=== PATIENT | female | born 1985 | race Hispanic/Latino ===

== ENCOUNTER 2017-08-12 03:03 | Emergency (ER) | payer MEDICAID, SELFPAY ==
[2017-08-12 03:36] LABS: Bilirubin Negative (Negative); Blood, Urine Large (Negative); Clarity TURBID (Clear); Glucose, Urine (Dipstick) Negative (Negative); Leukocyte Large (Negative); Nitrite Negative (Negative); Protein, Urine (Dipstick) 300 mg/dL (Neg-Trace); Specific Gravity, Urine 1.019 (1.002-1.036); Urobilinogen 0.2 mg/dL (0.2-1.0)
[2017-08-12 03:39] LABS: Bacteria/HPF None Seen HPF (None Seen); RBC/HPF GREATER THAN 50-TNTC HPF (0-3); Squamous Epithelial 0-3 HPF (0-3)
[2017-08-12 03:40] LABS: Hyaline Casts/LPF 0-3 HYALINE CAST LPF (0-3 Hyaline); Other Casts/LPF None Seen LPF (0-3 Hyaline); Pathc Cast-AUWi Flag 28.63 (0-2.49)
[2017-08-12 03:41] LABS: Pregnancy Test - Urine (BHCG) Negative (Negative); Pregu Control Background? CLEAR/WHITE (CLR/WHITE); Pregu Control Bar Appear? YES (CONTROL BAR); Specific Gravity 1.019 (1.002-1.036)
== END 2017-08-12 04:04 | disposition home or self-care (01) ==
LOC: ERS 03:03
DX: N30.01 Acute cystitis with hematuria (principal); F32.9 Major depressive disorder, single episode, unspecified
CPT/HCPCS: 81003; 81015; 81025; 99283

== ENCOUNTER 2017-10-26 19:58 | Emergency (ER) | payer SELFPAY ==
[2017-10-26 20:22] LABS: Bilirubin Negative (Negative); Blood, Urine Negative (Negative); Clarity CLOUDY (Clear); Glucose, Urine (Dipstick) Negative (Negative); Leukocyte Moderate (Negative); Nitrite Negative (Negative); Protein, Urine (Dipstick) Negative (Neg-Trace); Specific Gravity, Urine 1.016 (1.002-1.036); Urobilinogen 0.2 mg/dL (0.2-1.0)
[2017-10-26 20:23] LABS: Bacteria/HPF Rare-Few HPF (None Seen); Hyaline Casts/LPF 4-6 HYALINE CAST LPF (0-3 Hyaline); Pathc Cast-AUWi Flag 1.88 (0-2.49)
[2017-10-26 20:25] LABS: Pregnancy Test - Urine (BHCG) POSITIVE (Negative); Pregu Control Background? CLEAR/WHITE (CLR/WHITE); Pregu Control Bar Appear? YES (CONTROL BAR); Specific Gravity 1.016 (1.002-1.036)
[2017-10-26 23:00] LABS: #Basophils 0.1 thou/uL (0.0-0.2); #Eosinphils 0.1 thou/uL (0.0-0.7); #Monocytes 0.8 thou/uL (0.11-0.59); #Neutrophils 6.5 thou/uL (1.40-6.50); %Basophils 0.9 % (0.0-1.0); %Eosinophils 0.7 % (0.0-10.0); %Lymphocytes 35.1 % (21.0-51.0); %Monocytes 6.7 % (0.0-10.0); %Neutrophils 56.6 % (42.0-75.0); Hemoglobin 12.9 g/dL (12.0-16.0); Mean Corpuscular HGB CONC 34.5 g/dL (32.0-36.0); Mean Corpuscular Hemoglobin 30.1 pg (27.0-31.0); Mean Corpuscular Volume 87.3 fl (81.0-99.0); Mean Platelet Volume 7.4 fL (7.4-10.4); Platelet Count 273 thou/uL (130-400); RBC Distribution Width 12.6 % (11.5-14.5); Red Blood Cell (RBC) Count 4.29 mill/uL (4.20-5.40); White Blood Cell (WBC) Count 11.4 thou/uL (4.8-10.8)
--- NOTE | 2017-10-26 23:59 | ULT ---
TRANSABDOMINAL AND TRANSVAGINAL PELVIS ULTRASOUND: 10/26/2017 PROVIDED CLINICAL HISTORY: Cramping and pelvic pain. FINDINGS: The uterus measures about 9.5 x 5.1 x 6.7 cm. There is noncircumscribed endometrial fluid present. There is no evidence for a yolk sac or pole. The right ovary measures about 4.4 x 2.5 x 2.1 cm and demonstrates a likely physiologic cyst, measuri ng approximately 2.2 cm. The left ovary measures about 2.3 x 2 x 1.6 cm and appears sonographically unremarkable. Color Doppler and spectral analysis of the ovarian wave-forms demonstrates normal flow bilaterally. There is no evidence for significant free pelvic fluid. IMPRESSION: 1. No evidence for an acute process. 2. No definite sonographic evidence for an intrauterine gestational sac. In the setting of a positi ve hCG value, ectopic cannot be excluded on the basis of this study alone. POS: [facility]
[2017-10-29 01:36] LABS: Chlamydia by PCR Not Detected (NotDetected); GC by PCR Not Detected (NotDetected)
== END 2017-10-27 00:39 | disposition home or self-care (01) ==
LOC: ERS 19:58
DX: O99.89 Other specified diseases and conditions complicating pregnancy, childbirth and the puerperium (principal); R10.31 Right lower quadrant pain; Z3A.01 Less than 8 weeks gestation of pregnancy
CPT/HCPCS: 36415; 76856; 81003; 81015; 81025; 84702; 85025; 86900; 86901; 87480; 87491; 87510; 87591; 87660

== ENCOUNTER 2017-10-31 07:31 | Emergency (ER) | payer SELFPAY ==
[2017-10-31] MEDS ORDERED: Acetaminophen 500 MG TAB ONE (07:47)
--- NOTE | 2017-10-31 11:10 | ULT ---
PELVIC ULTRASOUND: DATE: 10/31/17. COMPARISON: 10/26/17. HISTORY: A 32-year-old female with pelvic pain. TECHNIQUE: Multiplanar, mcgrath scale, sonographic imaging of the pelvis is obtained with transabdominal and endova ginal imaging. Ovaries are assessed with color flow and spectral analysis. FINDINGS: Right ovary measures 3.3 x 3.7 x 2.8 cm and contains a 2 cm cyst. Blood flow is documented within th e right ovary. The left ovary measures 2.6 x 2.3 x 0.9 cm and demonstrates blood flow. A round hypoechoic structure is seen in the region of the endometrial canal measuring in the 8 x 10 m m range, not seen on the prior examination, suggesting interval development of a gestational sac. Ho wever, there is no pole or yolk sac seen within this structure. Immediately adjacent to this i s an irregular hypoechoic area which measures 1.4 x 0.7 cm, suggesting a subchorionic hemorrhage. No free pelvic fluid seen. Presumed gestational sac demonstrates a mean diameter of 0.9 cm, which would correlate with a 5-week 5-day gestation. IMPRESSION: 1. Findings suggesting interval development of a gestational sac. Correlation with quantitative bet a HCG is advised. There is a subchorionic hemorrhage suspected as detailed above. 2. Right ovarian cyst. Correlation with quantitative beta HCG is advised at this time and in 48 hours. POS: [facility]
== END 2017-10-31 10:12 | disposition home or self-care (01) ==
LOC: ERS 07:31
DX: O99.89 Other specified diseases and conditions complicating pregnancy, childbirth and the puerperium (principal); R10.9 Unspecified abdominal pain; Z3A.01 Less than 8 weeks gestation of pregnancy
CPT/HCPCS: 36415; 76856; 84702

== ENCOUNTER 2017-12-04 20:39 | Emergency (ER) | payer OTHER, SELFPAY ==
[2017-12-04 21:16] LABS: Bilirubin Negative (Negative); Blood, Urine Negative (Negative); Clarity CLOUDY (Clear); Glucose, Urine (Dipstick) Negative (Negative); Leukocyte Small (Negative); Nitrite Negative (Negative); Protein, Urine (Dipstick) Negative (Neg-Trace); Specific Gravity, Urine 1.023 (1.002-1.036); Urobilinogen 0.2 mg/dL (0.2-1.0); pH, Urine 5.5 (5.0-9.0)
[2017-12-04 21:19] LABS: Bacteria/HPF 1+ HPF (None Seen); Hyaline Casts/LPF 0-3 HYALINE CAST LPF (0-3 Hyaline); Pathc Cast-AUWi Flag 0.58 (0-2.49); Pregnancy Test - Urine (BHCG) POSITIVE (Negative); Pregu Control Background? CLEAR/WHITE (CLR/WHITE); Pregu Control Bar Appear? YES (CONTROL BAR); RBC/HPF 0-3 HPF (0-3); Specific Gravity 1.023 (1.002-1.036)
[2017-12-04 21:20] LABS: #Basophils 0.1 thou/uL (0.0-0.2); #Eosinphils 0.1 thou/uL (0.0-0.7); #Lymphocytes 3.3 thou/uL (1.20-3.40); #Monocytes 0.6 thou/uL (0.11-0.59); #Neutrophils 6.2 thou/uL (1.40-6.50); %Basophils 1.2 % (0.0-1.0); %Eosinophils 0.6 % (0.0-10.0); %Lymphocytes 32.2 % (21.0-51.0); %Monocytes 5.7 % (0.0-10.0); %Neutrophils 60.4 % (42.0-75.0); Hemoglobin 14.1 g/dL (12.0-16.0); Mean Corpuscular HGB CONC 34.5 g/dL (32.0-36.0); Mean Corpuscular Hemoglobin 30.4 pg (27.0-31.0); Mean Platelet Volume 7.7 fL (7.4-10.4); Platelet Count 272 thou/uL (130-400); RBC Distribution Width 12.7 % (11.5-14.5); Red Blood Cell (RBC) Count 4.64 mill/uL (4.20-5.40); White Blood Cell (WBC) Count 10.2 thou/uL (4.8-10.8)
[2017-12-04 21:40] LABS: ALT (SGPT) 12 U/L (8-55); AST (SGOT) 13 U/L (5-34); Albumin 4.3 g/dL (3.5-5.0); Alkaline Phosphatase 45 U/L (40-150); Anion Gap 12 mmol/L (10-20); BUN (Urea Nitrogen) 10 mg/dL (7.0-18.7); Bilirubin, Total 0.2 mg/dL (0.2-1.2); Calc. Creatinine Clearance 0 mL/min (70-130); Calcium 9.6 mg/dL (7.8-10.44); Carbon Dioxide 24 mmol/L (22-29); Chloride 106 mmol/L (98-107); Estimated GFR-MDRD Greater than 90; Globulin 3.2 g/dL (2.4-3.5); Glucose 89 mg/dL (70-105); Potassium 3.7 mmol/L (3.5-5.1); Protein, Total 7.5 g/dL (6.0-8.3); Sodium 138 mmol/L (136-145)
[2017-12-04] MEDS ORDERED: Azithromycin 250 MG TAB ONE (22:45)
[2017-12-04] MEDS ORDERED: cefTRIAXone\\ROCEPHIN 250 MG VIAL ONE (22:45)
[2017-12-04] MEDS ORDERED: Lidocaine 1% (PF) 30 ML VIAL ONE (22:45)
[2017-12-06 22:36] LABS: Chlamydia by PCR Not Detected (NotDetected); GC by PCR Not Detected (NotDetected)
== END 2017-12-04 23:09 | disposition home or self-care (01) ==
LOC: ERS 20:39 → EEVIPCON 20:39 → ERS 23:09
DX: O99.89 Other specified diseases and conditions complicating pregnancy, childbirth and the puerperium (principal); M54.5 Low back pain; O99.341 Other mental disorders complicating pregnancy, first trimester; F32.9 Major depressive disorder, single episode, unspecified; Z79.899 Other long term (current) drug therapy; Z3A.10 10 weeks gestation of pregnancy
CPT/HCPCS: 36415; 80053; 81003; 81015; 81025; 84702; 85025; 86900; 86901; 87086; 87480; 87491; 87510; 87591; 87660; 96360; 96372; J0696; J2001

== ENCOUNTER 2018-03-29 11:49 | Day surgery (SDC) | payer SELFPAY ==
[2018-03-29 12:19] LABS: Squamous Epithelial 0-3 HPF (0-3)
[2018-03-29 12:22] LABS: Bilirubin Negative (Negative); Blood, Urine Large (Negative); Clarity TURBID (Clear); Glucose, Urine (Dipstick) Negative (Negative); Leukocyte Large (Negative); Nitrite Negative (Negative); Protein, Urine (Dipstick) 30 mg/dL (Neg-Trace); Specific Gravity, Urine 1.004 (1.002-1.036); Urobilinogen 0.2 mg/dL (0.2-1.0)
[2018-03-29 12:23] LABS: Pathc Cast-AUWi Flag 3.92 (0-2.49); Yeast-AUWi Flag 141.4 (0-25.0)
[2018-03-29 12:27] VITALS: BMI 35.6
[2018-03-29 12:27] LABS: Bacteria/HPF 1+ HPF (None Seen); Crystals/HPF 1+ AMORPH URATES HPF (Negative); Hyaline Casts/LPF 0-3 HYALINE CAST LPF (0-3 Hyaline); Other Casts/LPF None Seen LPF (0-3 Hyaline)
[2018-03-29] MEDS ORDERED: CEFAZOLIN/Water 2 GM/20 ML SYRINGE ONE (12:42)
[2018-03-29] MEDS ORDERED: Lactated Ringer's 1,000 ML IV SCH (12:45)
[2018-03-29] MEDS ORDERED: CEFAZOLIN 1 GM in Sodium Chloride 0.9% 100 ML IVPB SCH (14:00)
--- NOTE | 2018-03-30 01:06 | SS ---
LABOR AND DELIVERY OB TRIAGE NOTE DATE OF EVALUATION: 03/29/2018 REGULAR PHYSICIAN: Jose Hector MD EVALUATING PHYSICIAN: James Patel MD CHIEF COMPLAINT: Painful urination, urinary frequency. HISTORY OF PRESENT ILLNESS: Ms. Butcher is a 32-year-old Latin-[place] , estimated date of con finement on 06/23/2018, who presents complaining of a 12-hour history of intense dysuria, urinary jolie quency, and blood in her urine. She denies flank pain, nausea, vomiting, fever, or chills. Her care has been with Dr. Hecotr here locally. PAST OBSTETRICAL HISTORY: Four uncomplicated vaginal deliveries. PAST MEDICAL HISTORY: None. PAST SURGICAL HISTORY: None. CURRENT MEDICATIONS: vitamins. ALLERGIES: PENICILLIN long in the past, which she states gave her a rash. She denies shortness of b reath with this. SOCIAL HISTORY: Denies tobacco, alcohol, or drug use. REVIEW OF SYSTEMS: Positive for dysuria, frequency, and hematuria. Negative for nausea, vomiting, f ever, chills, or flank pain. PHYSICAL EXAMINATION: Vital signs are stable and she is afebrile. Her abdomen is soft and nontender and gravid. On pelvic examination, her cervix is closed. heart rate tracing is stable with n o decelerations. No uterine contractions were seen. LABORATORY DATA: Urinalysis: Specific gravity 1.004, 1+ protein, large blood, large leukocyte charleen ase. On microscopic, there is 7-10 rbc's, greater than 50 wbc's with 0-3 squamous cells, and 1+ bact eria. The patient is given a single dose of 1 gram Ancef IV and has hydrated with IV fluid. She improved a fter receiving the dose. ASSESSMENT: 1. A 29-week intrauterine . 2. Urinary tract infection. PLAN: The patient was sent home with prescriptions for Keflex 500 mg 1 p.o. q.i.d. for 7 days as wel l as Pyridium 100 mg 1 p.o. t.i.d. for 48 hours. She voiced understanding of her discharge instructi ons and was sent home in good condition.
== END 2018-03-29 14:06 | disposition home or self-care (01) ==
LOC: L&D/OP 11:49
PROVIDERS: ATTEND Family Medicine
DX: O23.43 Unspecified infection of urinary tract in pregnancy, third trimester (principal); Z88.0 Allergy status to penicillin; Z3A.29 29 weeks gestation of pregnancy
CPT/HCPCS: 51701; 81003; 81015; 96360; 96361; 96375; 99283; A4353; J0690; J7050

== ENCOUNTER 2018-04-15 22:11 | Day surgery (SDC) | payer SELFPAY ==
[2018-04-15 23:14] VITALS: BP 109/58; TEMP 98; BMI 36.8
[2018-04-16 00:24] LABS: Bilirubin Negative (Negative); Blood, Urine Negative (Negative); Clarity CLEAR (Clear); Glucose, Urine (Dipstick) Negative (Negative); Leukocyte Negative (Negative); Nitrite Negative (Negative); Protein, Urine (Dipstick) Negative (Neg-Trace); Urobilinogen 0.2 mg/dL (0.2-1.0)
[2018-04-16 00:26] LABS: Specific Gravity, Urine 1.003 (1.002-1.036)
[2018-04-16 00:27] LABS: Bacteria/HPF None Seen HPF (None Seen); Hyaline Casts/LPF 0-3 HYALINE CAST LPF (0-3 Hyaline); RBC/HPF None Seen HPF (0-3); Squamous Epithelial None Seen HPF (0-3); WBC/HPF None Seen HPF (0-3)
--- NOTE | 2018-04-16 00:43 | PDOC.LDHP ---
Labor and Delivery H&P Chief complaint: contractions, other HPI: Pt is a 32 yo female @ 30.1 weeks who comes in with concern of ctx. Pt reports having an episode of 4 ctx around 10 am this morning. Reports having an episode of feeling light headed and feeling like BP was low earlier today. Pt wanted to come in and make sure everything was okay. Pt reports being here a few weeks ago and tx with a 7 day course of keflex for a UTI. Denies any dizziness, headache, lightheadness. Denies any fever/chills. Denies any chest pain or SOB at this time. Report increased urination frequency. Denies any pain with urination. +FM, denies vaginal bleeding, discharge or irritation. Denies any ctx at this time. Current gestational age (weeks): 30 (1 day) Due date: 06/24/18 Grav: 5 Para: 4 Current complications: none Abnormal US findings: No Current medications: pre-demond vitamins Social history: none - Physical Exam Vital signs reviewed and normal: yes General: NAD, resting Heart: RRR Lungs: nonlabored breathing Abdomen: NTTP Extremeties: no edema FHT: category 1 [place] contractions every: none seen - Vaginal Exam Effacement: 50% Station: -2 - Assessment Ctx. - Plan Plan: observation in L&D -: @ 30.1 weeks with reported ctx earlier in the day. -Cat 1 stip. No ctx seen on FHR monitoring. -Will check U/A, VP3 and Fibronectin at this time. -Pt vitals stable. Discussed with pt about drinking plenty of fluids. -Will continue to monitor while waiting on labs. <Yosi Sterling - Last Filed: 04/16/18 00:44> <Herrera Ramirez - Last Filed: 04/17/18 18:01> Allergies/Adverse Reactions: Allergies Allergy/AdvReac Type Severity Reaction Status Date / Time Penicillins Allergy Intermediate Verified 04/15/18 22:54 Attending Addendum - Attending Addendum Date/Time: 04/17/18 1800 I personally evaluated the patient and discussed the management with Dr. Sterling I agree with the History, Examination, Assessment and Plan documented above with any addition or exceptions noted below. 32 yo @ 30.1 weeks comes in with concern of ctx. -U/A negative. -Fibronectin negative. -VP3 pending. Will f/u result with pt in the AM -At this time pt doing well. Discussed with pt adquate hydration and labor precautions Pt will be discharged home <Herrera Ramirez - Last Filed: 04/17/18 18:01>
[2018-04-16 00:46] LABS: Fetal Fibronectin Negative (Negative)
[2018-04-16 00:47] LABS: FFN Internal QC Analyzer PASS (PASS); FFN Internal QC Cassette PASS (PASS)
--- NOTE | 2018-04-16 01:02 | PDOC.EVN ---
Event Note - Event Note Event Note: 32 yo @ 30.1 weeks comes in with concern of ctx. -U/A negative. -Fibronectin negative. -VP3 pending. Will f/u result with pt in the AM -At this time pt doing well. Discussed with pt adquate hydration and labor precautions.
== END 2018-04-16 01:18 | disposition home health service (06) ==
LOC: L&D/OP 22:11
PROVIDERS: ATTEND Family Medicine
DX: O47.03 False labor before 37 completed weeks of gestation, third trimester (principal); Z3A.30 30 weeks gestation of pregnancy; Z79.899 Other long term (current) drug therapy; Z88.0 Allergy status to penicillin
CPT/HCPCS: 81001; 82731; 87480; 87510; 87660; 99284

== ENCOUNTER 2018-06-18 20:48 | Day surgery (SDC) | payer SELFPAY ==
[2018-06-18 21:21] VITALS: BMI 37.8
--- NOTE | 2018-06-18 22:10 | PDOC.FPROB ---
FMR OB H&P: HPI - History of Present Illness Chief Complaint: contractions History of Present Illness: 33 yo @39.3 wk by LMP/11 wk US. Presents with cc of contractions that started earlier today. States her previous labors have progressed rapidly once she started feeling contractions. Youngest child is 3 years old. Additionally, she reports pelvic pressure. Denies LOF, bleeding, MELGAR, N/V, or change in vaginal discharge. SVE in clinic on was 2 cm. Primary Care Physician: Krunal FMR OB H&P: Current - Care : 5 Para: 4004 Gestational age: 39.3 wk Due date: 06/23/18 Dating Criteria: LMP/11 wk US Course/Complications: none - OB Labs Blood type: A RH: positive Antibody Screen: negative HIV: negative RPR: negative HepBsAg: negative Rubella: immune Quad screen: unknown Urine drug screen: not done Gonorrhea: negative Chlamydia: negative Pap Smear: NILM 1 hour gtt: 126 GBS: positive H&H: 12.7/37.9 - First Trimester Ultrasound First trimester: no abnormalities - Anatomy Survey Anatomy survey: no abnormalities FMR OB H&P: History - Past Medical History PMH: none - OB History OB History: term vaginal deliveries x4 - BOOK SOLICITOR History BOOK SOLICITOR History: none - Surgical History Sx History: none - Social History Social History: no A/T/D - Family History Family History: Dad- HTN FMR OB H&P: Medications - Current Home Medications: Medication Instructions Recorded Confirmed Type No122/Iron/Folic Acid 1 each PO DAILY 05/29/15 06/18/18 History [ Multi Tablet] Allergies/Adverse Reactions: Allergies Allergy/AdvReac Type Severity Reaction Status Date / Time Penicillins Allergy Intermediate Verified 04/15/18 22:54 FMR OB H&P: ROS - Review of Systems General: denies: fever/chills, weight/appetite/sleep changes Eyes: denies: eye pain, vision changes ENT: denies: nasal congestion, rhinorrhea Cardiovascular: denies: chest pain, palpitation Gastrointestinal: denies: abdominal pain, indigestion Genitourinary (Female): reports: contractions, vaginal pressure. denies: incontinence, dysuria, hematuria, polyuria, hesitancy, vaginal discharge, vaginal pain, vaginal bleeding, vaginal mass/sore Musculoskeletal: denies: pain, stiffness, decrease range of motion Neurologic: denies: numbness, syncope Integumentary: denies: itching, rash Breast: denies: lumps, bumps Endocrine: denies: cold intolerance, heat intolerance Hematologic/Lymphatic: denies: prolonged or excessive bleeding, enlarged lymph nodes Psychological: denies: depression, anxiety FMR OB H&P: Vital Signs - Maternal Vital signs: BP 111/51, P 101, R 18, T 98.7F - Heart Tones Baseline: 140 Variability: moderate Acceleration: present Deceleration: absent Category: category 1 [place] contractions every: none detected on toco. FMR OB H&P: Physical Exam - Physical Exam General: NAD, awake, alert and oriented HEENT: normocephalic and atraumatic, PERRLA Neck: supple, FROM Chest: non-tender to palpation, no lesions Breast: symmetric, non-tender Heart: RRR, normal S1/S2 General: CTAB, no respiratory distress Abdomen: soft, gravid, non-tender, no masses, no hernias Musculoskeletal: normal gait and station, FROM in all four extremities Neurological: sensation to pain,touch and proprioception grossly normal, no focal deficit Skin: no rash, good tugor Lymphatic: no unusual bruising or bleeding Psychiatric: intact recent and remote memory, good judgement and insight - Pelvic Exam Vulva: normal hair distribution, no masses, no lesions Cervix: no masses, no lesions SVE: 2/60/-2 Membranes: intact Presentation: vertex Estimated Weight: 8 lbs FMR OB H&P: A/P - Problem List (1) [place] contractions Status: Acute Code(s): O47.9 - FALSE LABOR, UNSPECIFIED Disposition: Patient reassured and would like to go home. Given RTC precautions. Discharged home. Discussed with Dr. Ramirez. Discussion: Date/Time: 06/18/182207 Addendum - Attending - Attending Attestation Date/Time: 06/21/18 3814 I personally evaluated the patient and discussed the management with Dr. Wood I agree with the History, Examination, Assessment and Plan documented above with any addition or exceptions noted below.
== END 2018-06-18 22:18 | disposition home health service (06) ==
LOC: L&D/OP 20:48
PROVIDERS: ATTEND Family Medicine
DX: O47.1 False labor at or after 37 completed weeks of gestation (principal); Z3A.39 39 weeks gestation of pregnancy; Z79.899 Other long term (current) drug therapy; Z88.0 Allergy status to penicillin
CPT/HCPCS: 99282

== ENCOUNTER 2018-06-21 22:59 | Inpatient (IN) | payer MEDICAID, OTHER, SELFPAY ==
[2018-06-21 23:33] VITALS: BMI 39.4
[2018-06-22] MEDS ORDERED: Butorphanol Tartrate 1 MG/ML VIAL SLOW IVP PRN (01:28)
[2018-06-22] MEDS ORDERED: Ibuprofen 800 MG TAB PO PRN (01:28)
[2018-06-22] MEDS ORDERED: Ondansetron PF 4 MG/2 ML Vial IVP PRN ×2 (01:28→06:00)
[2018-06-22] MEDS ORDERED: Lidocaine 1% (PF) 30 ML VIAL SC PRN (01:28)
[2018-06-22] MEDS ORDERED: HYDROcodone/Acetaminophen 5/325 mg Tablet PO PRN ×2 (01:28→06:00)
[2018-06-22] MEDS ORDERED: NS / Oxytocin 40 units/1000ml 1,000 ML IV PRN (01:28)
[2018-06-22] MEDS ORDERED: Lactated Ringer's 1,000 ML IV SCH ×2 (01:30)
[2018-06-22] MEDS ORDERED: Penicillin G Potassium 5 MILL.UNITS VIAL ONE (01:38)
[2018-06-22 01:44] LABS: Mean Corpuscular HGB CONC 33.5 g/dL (32.0-36.0); Mean Corpuscular Volume 86.6 fL (78.0-98.0); Mean Platelet Volume 9.7 fL (7.4-10.4); Platelet Count 190 thou/uL (130-400); RBC Distribution Width 13.3 % (11.5-14.5); Red Blood Cell (RBC) Count 4.82 mill/uL (4.20-5.40); White Blood Cell (WBC) Count 12.3 thou/uL (4.8-10.8)
[2018-06-22] MEDS ORDERED: Calcium Carbonate 500 MG ChewTAB PO SCH (02:15)
[2018-06-22 02:24] LABS: HBSAg Index 0.21 S/CO (0-0.99); Hep B Surf Ag Non-Reactive S/CO (NonReactive)
[2018-06-22] MEDS ORDERED: Lidocaine 1% (PF) 30 ML VIAL ONE (02:32)
[2018-06-22 05:09] LABS: Syphilis Antibody Nonreactive (Nonreactive); Syphilis Antibody Index 0.03 S/CO (<1.00 Non-Reactive)
[2018-06-22] MEDS ORDERED: Bisacodyl 10 MG SUPP PR PRN (06:00)
[2018-06-22] MEDS ORDERED: Milk Of Magnesia 30 ML UDCUP PO PRN (06:00)
[2018-06-22] MEDS ORDERED: CEFAZOLIN 1 GM in Sodium Chloride 0.9% 100 ML IVPB SCH (06:00)
[2018-06-22] MEDS ORDERED: NS / Oxytocin 40 units/1000ml 1,000 ML IV SCH (06:00)
[2018-06-22] MEDS ORDERED: Lanolin Ointment 7 GM TUBE TOP PRN (06:00)
[2018-06-22] MEDS: HYDROcodone/Acetaminophen 5/325 mg Tablet PO PRN ×2 (08:13→17:31)
[2018-06-22] MEDS: Prenatal Vitamin 1 TAB PO SCH (08:13)
[2018-06-22] MEDS: Ferrous Sulfate 325 MG TAB PO SCH ×2 (08:15→13:56)
[2018-06-22] MEDS: Ibuprofen 800 MG TAB PO SCH ×3 (08:16→21:40)
[2018-06-22] MEDS: Docusate Calcium (SURFAK) 240 MG CAP PO SCH ×2 (10:05→21:40)
[2018-06-23 06:34] LABS: Hemoglobin 11.7 g/dL (12.0-16.0); Mean Corpuscular HGB CONC 33.8 g/dL (32.0-36.0); Mean Corpuscular Hemoglobin 29.7 pg (27.0-31.0); Mean Corpuscular Volume 87.8 fL (78.0-98.0); Mean Platelet Volume 9.1 fL (7.4-10.4); Platelet Count 171 thou/uL (130-400); RBC Distribution Width 13.5 % (11.5-14.5); Red Blood Cell (RBC) Count 3.94 mill/uL (4.20-5.40); White Blood Cell (WBC) Count 10.1 thou/uL (4.8-10.8)
[2018-06-23] MEDS: Prenatal Vitamin 1 TAB PO SCH (09:02)
[2018-06-23] MEDS: Ibuprofen 800 MG TAB PO SCH ×3 (09:05→18:08)
[2018-06-23] MEDS: Docusate Calcium (SURFAK) 240 MG CAP PO SCH ×2 (09:06→21:40)
[2018-06-23] MEDS: Ferrous Sulfate 325 MG TAB PO SCH ×2 (09:06→18:07)
[2018-06-23 20:56] VITALS: TEMP 97.8
[2018-06-24] MEDS: Ibuprofen 800 MG TAB PO SCH ×3 (05:59→14:42)
[2018-06-24] MEDS: Ferrous Sulfate 325 MG TAB PO SCH (07:51)
[2018-06-24 08:21] VITALS: BP 92/61
[2018-06-24] MEDS: Prenatal Vitamin 1 TAB PO SCH (10:09)
[2018-06-24] MEDS: Docusate Calcium (SURFAK) 240 MG CAP PO SCH (10:09)
== END 2018-06-24 16:30 | disposition home or self-care (01) | DRG 807 ==
LOC: L&D/OP 22:59 → L&D 06-22 01:45 → 3SW 06-22 06:25
PROVIDERS: ADMIT Family Medicine; ATTEND Family Medicine
PROC: 10E0XZZ Delivery of Products of Conception, External Approach (ICD-10-PCS; principal; 2018-06-22)
DX: O80 Encounter for full-term uncomplicated delivery (principal); Z37.0 Single live birth; Z3A.39 39 weeks gestation of pregnancy
CPT/HCPCS: 36415; 85027; 86780; 86850; 86900; 86901; 87340; 99285; J0690; J2001; J2540

== ENCOUNTER 2018-12-23 20:35 | Emergency (ER) | payer MEDICAID, SELFPAY ==
[2018-12-23 21:04] LABS: Blood, Urine Small (Negative); Leukocyte Large (Negative); Nitrite Positive (Negative)
[2018-12-23 21:05] LABS: Bilirubin Unable to Interpret (Negative); Clarity Cloudy (Clear); Glucose, Urine (Dipstick) Unable to Interpret mg/dL (Negative)
[2018-12-23 21:07] LABS: Bacteria/HPF 1+ HPF (None Seen); Squamous Epithelial 0-3 HPF (0-3); WBC/HPF 21-50 HPF (0-3)
[2018-12-23 21:08] LABS: Yeast-Budding None Seen HPF (None Seen)
== END 2018-12-23 21:45 | disposition home or self-care (01) ==
LOC: ERS 20:35
DX: N30.90 Cystitis, unspecified without hematuria (principal)
CPT/HCPCS: 81003; 81015; 99284

== ENCOUNTER 2019-04-15 21:05 | Emergency (ER) | payer OTHER, SELFPAY ==
[2019-04-15 21:38] LABS: #Eosinphils 0.1 thou/uL (0.0-0.7); #Lymphocytes 2.7 thou/uL (1.20-3.40); #Monocytes 0.6 thou/uL (0.11-0.59); %Basophils 0.4 % (0.0-1.0); %Eosinophils 0.6 % (0.0-10.0); %Lymphocytes 28.9 % (21.0-51.0); %Monocytes 6.4 % (0.0-10.0); %Neutrophils 63.7 % (42.0-75.0); Hemoglobin 12.4 g/dL (12.0-16.0); Mean Corpuscular HGB CONC 34.6 g/dL (32.0-36.0); Mean Corpuscular Hemoglobin 30.1 pg (27.0-31.0); Mean Corpuscular Volume 87.1 fL (78.0-98.0); Mean Platelet Volume 8.4 fL (7.4-10.4); Platelet Count 240 thou/uL (130-400); RBC Distribution Width 12.4 % (11.5-14.5); Red Blood Cell (RBC) Count 4.11 mill/uL (4.20-5.40); White Blood Cell (WBC) Count 9.5 thou/uL (4.8-10.8)
[2019-04-15 21:46] LABS: Bilirubin Negative (Negative); Blood, Urine Negative (Negative); Clarity Clear (Clear); Glucose, Urine (Dipstick) Normal (Negative); Leukocyte Negative Leu/uL (Negative); Nitrite Negative (Negative); Protein, Urine (Dipstick) Negative (Neg-Trace); Urobilinogen Normal mg/dL (Less than 2)
[2019-04-15 21:57] LABS: ALT (SGPT) 12 U/L (8-55); AST (SGOT) 12 U/L (5-34); Albumin 3.8 g/dL (3.5-5.0); Alkaline Phosphatase 49 U/L (40-110); Anion Gap 15 mmol/L (10-20); BUN (Urea Nitrogen) 10 mg/dL (7.0-18.7); Bilirubin, Total Less than 0.2 mg/dL (0.2-1.2); Calc. Creatinine Clearance 0 mL/min (70-130); Calcium 9.2 mg/dL (7.8-10.44); Carbon Dioxide 21 mmol/L (22-29); Chloride 106 mmol/L (98-107); Estimated GFR-MDRD Greater than 90; Globulin 3.2 g/dL (2.4-3.5); Glucose 116 mg/dL (70-105); Potassium 3.6 mmol/L (3.5-5.1); Sodium 138 mmol/L (136-145)
--- NOTE | 2019-04-15 22:32 | ULT ---
EXAM: US OB Ltd PROVIDED CLINICAL HISTORY: Pelvic cramping COMPARISON: None FINDINGS: A single live intrauterine gestation is documented with heart rate of 137 bpm. Breech presentation, a nterior placenta without evidence for previa or abruption. Estimated gestational age based on ultrasound 17 weeks 6 days. Estimated weight 218 +/- 32 g. Cervical length appears adequate. Am niotic fluid appears adequate. A complete anatomic survey was not performed, but visualized anatomy appears normal. biometry: BPD 3.94 cm 18 weeks 0 days Head circumference 14.16 cm 17 weeks 3 days Abdominal circumference 12.8 cm 18 weeks 3 days Femur length 2.51 cm 17 weeks 4 days IMPRESSION: Single live intrauterine gestation as described.
== END 2019-04-15 23:05 | disposition home or self-care (01) ==
LOC: ERS 21:05
DX: O99.89 Other specified diseases and conditions complicating pregnancy, childbirth and the puerperium (principal); R10.9 Unspecified abdominal pain; Z3A.17 17 weeks gestation of pregnancy
CPT/HCPCS: 36415; 76815; 80053; 81003; 85025

== ENCOUNTER 2019-05-02 09:38 | Outpatient (CLI) | payer OTHER ==
--- NOTE | 2019-05-02 11:23 | ULT ---
EXAM: OB ultrasound COMPARISON: 04/15/2019 HISTORY: female. Evaluate size, dates, and anatomy. TECHNIQUE: Multiplanar grayscale and color Doppler transabdominal sonographic images are obtained. FINDINGS: There is a single intrauterine gestation in cephalic presentation. Cardiac Doppler demonstr ates heart tones with a heart rate of 134 beats per minute. The placenta is located anteriorly without evidence of placenta previa. There is a normal amount of amniotic fluid with an am niotic fluid index of 13.9 centimeters. The cervical length based on transabdominal imaging measures 4.9 centimeters. biometry measurements: BPD 4.45 cm -- 19 weeks 4 days HC 16.62 cm -- 19 weeks 3 days AC 14.93 cm -- 20 weeks 2 days FL 3.15 cm -- 19 weeks 6 days The estimated gestational age by ultrasound is 19 weeks 6 days with an FREDY on09/20/2019. Gestational a ge by the last menstrual period is 20 weeks 2 days. The estimated weight by ultrasound is 321 g (11 ounces). This represents 26 percentile for feta l weight. There has been interval growth when compared to the prior study 04/15/2019. A 4 chambered heart is visualized. The cerebellum, visualized portions of the spine, kidneys, u rinary bladder, and cord insertion demonstrate a normal sonographic appearance. A three-vessel cord is not visualized, but there is flow on either side of the urinary bladder sugges ting a three-vessel cord.. No anomalies are seen. IMPRESSION: 1. Single intrauterine gestation in cephalic presentation with heart tones documented. Estimat ed gestational age by ultrasound is 19 weeks 6 days. 2. Estimated weight is 321 g (11 ounces). 3. Amniotic fluid index is 13.9 centimeters.
== END 2019-05-02 09:39 | disposition home or self-care (01) ==
LOC: BICULT 09:38
PROVIDERS: ATTEND Family Medicine
DX: O09.522 Supervision of elderly multigravida, second trimester (principal); Z3A.19 19 weeks gestation of pregnancy
CPT/HCPCS: 76816

== ENCOUNTER 2019-08-26 11:08 | Day surgery (SDC) | payer OTHER ==
[2019-08-26] MEDS ORDERED: hydrALAZINE 20 MG/ML VIAL SLOW IVP PRN (11:54)
--- NOTE | 2019-08-26 12:01 | PDOC.LDHP ---
Labor and Delivery H&P Chief complaint: contractions HPI: 34YO @ 37.3 WGA (FREDY 09/13/19) who presents for contractions that have been occurring a few times/day for the last 2 weeks. Says they are somewhat painful and she never had this with her prior pregnancies so wanted to make sure she wasn't in labor. + FM. No LOF/VB or abnormal discharge. Does endorse occasional dysuria and pain after intercourse. Current gestational age (weeks): 37 (37.3) Due date: 09/13/19 Grav: 6 Para: 5 OB History Details: 5 term SVDs w/o complications current : h/o UTI & jay this s/p tx Current complications: none Current medications: pre- vitamins Previous surgical history: none Allergies/Adverse Reactions: Allergies Allergy/AdvReac Type Severity Reaction Status Date / Time Penicillins Allergy Intermediate Verified 04/15/18 22:54 Social history: none - Physical Exam Vital signs reviewed and normal: yes General: NAD, resting, breathing through contractions Heart: RRR Lungs: nonlabored breathing Abdomen: NTTP Extremeties: normal range of motion FHT: variability present [place] contractions every: no regular contractions noted - Vaginal Exam cm dilated: 1 Effacement: 0% Station: -1 - Plan -: 34YO @ 37.3 WGA presenting for contractions. #term sIUP w/ contractions r/o labor: - Patient's SVE unchanged from reported SVE on office on 08/22/19 @ 1/Th/-1. No regular contractions noted on monitor. FHTs reassuring w/ baseline in 140s w/ reactivity and accels. - Will have patient keep office appt with Dr. Hector this week for routine outpatient follow-up. Instructed to return to L&D should contractions become more regular and painful and/or she has LOF. Endorsed understanding. #dysuria: - Patient reported dysuria this AM and some after intercourse last night. - Patient unable to provide urine sample & was not willing to wait as her 16YO daughter was in the car waiting on her. Instructed to mention dysuria at NOV with Dr. Hector on Wednesday if she still has it then. #hemorrhoids: - Script sent in for topical hydrocortisone per the patient's request. Dispo: D/c home with close follow-up with PCP on 08/28/19.
[2019-08-26 12:13] VITALS: BMI 38.9
--- NOTE | 2019-08-26 12:54 | HP ---
LABOR AND DELIVERY H AND P FACULTY ATTESTATION LOCATION: Labor and triage bed A. This is a patient of Dr. Hector. Time of evaluation was roughly 1150 or so. CHIEF COMPLAINT: Possible contractions. HISTORY OF PRESENT ILLNESS: In brief, this is a 34-year-old multigravida who is a G6, P5 at 37 weeks and 3 days, who complains of contractions on and off, but have decreased since she arrived. She states that they are about every 10-12 minutes. She states that she was seen by Dr. Hector last Wednesday and was 1 cm by his exam. She denies leakage of fluid, vaginal bleeding, or any decrease in movement. She denies any fever, cough or other respiratory symptoms. REVIEW OF SYSTEMS: Complete review of systems was done and is otherwise negative unless specified in the HPI. The following is the only positive review of systems (confirmed after the initial H and P) is that she had some on and off dysuria/burning on urination, but not any currently. PAST MEDICAL HISTORY: Unremarkable. OB HISTORY: She is a multigravida is a G6, P5 with vaginal . SOCIAL HISTORY: Noncontributory. ALLERGIES: PENICILLIN. PHYSICAL EXAMINATION: GENERAL: She is in no acute distress. VITAL SIGNS: Stable and she is afebrile. Respirations are 16 to 18 and nonlabored. Vital signs were reviewed in the QS system. ABDOMEN: Soft and nontender. CERVICAL: Exam reveals a cervix of 1 cm dilation, effacement is still thick and there is -1 station. There is no evidence of vaginal bleeding or leakage of fluid clinically. On the external monitor, heart tones are in the 140s to 150s with moderate variability and accelerations. There are no pathological decelerations. There is a little bit of irritability on tocodynamometer, but no evidence of true labor. ASSESSMENT: This is a patient at early term with threatened labor/latent phase. There is no evidence of acute maternal- complication. PLAN: 1. Reassurance given. 2. Okay for outpatient care. 3. Nonstress test is reactive. 4. The patient elected not to have a urinalysis now as her son was waiting for her in the car. She will follow up with Dr. Hector to address this if symptoms continue. Job ID: [id number]
[2019-08-27] MEDS ORDERED: FLU VACC QS2019-20(6MOS UP)/PF 60 MCG/0.5 ML SYRINGE IM ONE (09:00)
[2019-08-27] MEDS ORDERED: Fentanyl 100 MCG/2 ML VIAL ONE (16:32)
[2019-08-27] MEDS ORDERED: PHENYLEPHRINE-NS 100 MCG/ML 10 ML SYRINGE ONE (16:33)
[2019-08-27] MEDS ORDERED: MORPHINE 5 MG/10 ML PF VIAL ONE (16:33)
[2019-08-27] MEDS ORDERED: Oxytocin 10 UNITS/ML VIAL ONE (16:33)
[2019-08-27] MEDS ORDERED: Ketorolac Tromethamine 30 MG/ML VIAL ONE (16:33)
[2019-08-27] MEDS ORDERED: EPHEDRINE 25 MG/5 ML SYRINGE ONE (16:33)
[2019-08-27] MEDS ORDERED: Dexamethasone 4 mg/ml Vial ONE (16:33)
== END 2019-08-26 12:21 | disposition home or self-care (01) ==
LOC: L&D/OP 11:08
PROVIDERS: ATTEND Family Medicine
DX: O47.1 False labor at or after 37 completed weeks of gestation (principal); O99.89 Other specified diseases and conditions complicating pregnancy, childbirth and the puerperium; R30.0 Dysuria; O22.43 Hemorrhoids in pregnancy, third trimester; O09.523 Supervision of elderly multigravida, third trimester; Z3A.37 37 weeks gestation of pregnancy; Z88.0 Allergy status to penicillin
CPT/HCPCS: 99282; J1100; J1885; J2274; J2590; J3010

== ENCOUNTER 2019-09-06 00:52 | Inpatient (IN) | payer MEDICAID, OTHER, SELFPAY ==
[2019-09-06] MEDS ORDERED: Butorphanol Tartrate 1 MG/ML VIAL SLOW IVP PRN (01:51)
[2019-09-06] MEDS ORDERED: Promethazine HCl 25 MG/ML VIAL IM PRN ×2 (01:51→04:32)
[2019-09-06] MEDS ORDERED: hydrALAZINE 20 MG/ML VIAL SLOW IVP PRN ×2 (01:51→10:10)
[2019-09-06] MEDS ORDERED: NS / Oxytocin 40 units/1000ml 1,000 ML IV PRN (01:51)
[2019-09-06] MEDS ORDERED: Lidocaine 1% (PF) 30 ML VIAL SC PRN (01:51)
[2019-09-06] MEDS ORDERED: Ibuprofen 800 MG TAB PO PRN (01:51)
[2019-09-06] MEDS ORDERED: Ondansetron PF 4 MG/2 ML Vial IVP PRN ×3 (01:51→10:10)
[2019-09-06] MEDS ORDERED: HYDROcodone/Acetaminophen 5/325 mg Tablet PO PRN (01:51)
[2019-09-06] MEDS ORDERED: Lactated Ringer's 1,000 ML IV SCH ×2 (02:00→03:00)
[2019-09-06 02:08] LABS: Hemoglobin 14.3 g/dL (12.0-16.0); Mean Corpuscular HGB CONC 33.9 g/dL (32.0-36.0); Mean Corpuscular Hemoglobin 29.6 pg (27.0-31.0); Mean Corpuscular Volume 87.2 fL (78.0-98.0); Mean Platelet Volume 10.6 fL (7.4-10.4); Platelet Count 152 thou/uL (130-400); RBC Distribution Width 13.7 % (11.5-14.5); Red Blood Cell (RBC) Count 4.84 mill/uL (4.20-5.40); White Blood Cell (WBC) Count 11.6 thou/uL (4.8-10.8)
[2019-09-06 02:10] VITALS: BMI 39.4
[2019-09-06] MEDS ORDERED: Fentanyl 4 mcg/Bup 0.1% Cadd 100 ML ONE (02:41)
[2019-09-06 02:47] LABS: HBSAg Index 0.19 S/CO (0-0.99); Hep B Surf Ag Non-Reactive S/CO (NonReactive)
[2019-09-06] MEDS ORDERED: Naloxone HCl 0.4 mg/ml Vial IVP PRN ×2 (04:32)
[2019-09-06] MEDS ORDERED: diphenhydrAMINE 50 MG/ML VIAL IVP PRN (04:32)
[2019-09-06] MEDS ORDERED: Lactated Ringer's 500 ML IV PRN (04:32)
[2019-09-06] MEDS ORDERED: Acetaminophen 325 MG TAB PO PRN (04:32)
[2019-09-06] MEDS ORDERED: EPHEDRINE 25 MG/5 ML SYRINGE SLOW IVP PRN (04:32)
[2019-09-06] MEDS ORDERED: Fentanyl 4 mcg/Bupivacaine 0.1% Cassette 100 ML EPIDURAL SCH (04:45)
[2019-09-06] MEDS ORDERED: Communication Order-Pharmacy FS SCH (04:45)
[2019-09-06 05:01] LABS: Syphilis Antibody Nonreactive (Nonreactive); Syphilis Antibody Index 0.03 S/CO (<1.00 Non-Reactive)
[2019-09-06] MEDS ORDERED: NS / Oxytocin 40 units/1000ml 1,000 ML ONE (05:01)
[2019-09-06] MEDS ORDERED: Lidocaine 1% (PF) 30 ML VIAL ONE (05:01)
--- NOTE | 2019-09-06 06:44 | DN ---
DATE OF PROCEDURE: 09/06/2019 The patient delivered a male infant at 5:18 a.m. on 09/06/2019, by spontaneous vaginal delivery. When I presented to the room, was in the patient's arms. Cord was clamped and cut. Cord blood was collected, and placenta was then delivered spontaneously. Apgars were 7 and 9. Weight, unavailable at time of dictation. There were no lacerations. Estimated blood loss, 200 mL. Delivering physician, Dr. Herrera Ramirez. Count, correct. Condition, both mother and baby are stable in the room in the immediate . Job ID: [id number]
[2019-09-06] MEDS ORDERED: Bupivacaine/Epinephrine 0.25% 30 ML VIAL ONE (09:48)
[2019-09-06] MEDS ORDERED: NS / Oxytocin 40 units/1000ml 1,000 ML IV SCH (10:10)
[2019-09-06] MEDS ORDERED: Lanolin Ointment 7 GM TUBE TOP PRN (10:10)
[2019-09-06] MEDS ORDERED: Milk Of Magnesia 30 ML UDCUP PO PRN (10:10)
[2019-09-06] MEDS ORDERED: diphenhydrAMINE 25 MG CAP PO PRN (10:10)
[2019-09-06] MEDS ORDERED: Bisacodyl 10 MG SUPP PR PRN (10:10)
[2019-09-06] MEDS ORDERED: Adacel (T-DAP) 0.5 ML SYRINGE IM ONE (10:10)
[2019-09-06] MEDS ORDERED: Docusate Calcium (SURFAK) 240 MG CAP PO SCH (10:30)
[2019-09-06] MEDS ORDERED: Prenatal Vitamin 1 TAB PO SCH (10:30)
[2019-09-06] MEDS ORDERED: Ferrous Sulfate 325 MG TAB PO SCH (10:30)
[2019-09-06 10:34] LABS: Hemoglobin 13.3 g/dL (12.0-16.0); Mean Corpuscular HGB CONC 34.4 g/dL (32.0-36.0); Mean Corpuscular Hemoglobin 29.9 pg (27.0-31.0); Mean Corpuscular Volume 86.7 fL (78.0-98.0); Mean Platelet Volume 10.8 fL (7.4-10.4); Platelet Count 133 thou/uL (130-400); RBC Distribution Width 13.7 % (11.5-14.5); Red Blood Cell (RBC) Count 4.46 mill/uL (4.20-5.40); White Blood Cell (WBC) Count 16.7 thou/uL (4.8-10.8)
[2019-09-06] MEDS: Ibuprofen 800 MG TAB PO SCH ×2 (11:00→18:30)
[2019-09-06] MEDS: HYDROcodone/Acetaminophen 5/325 mg Tablet PO PRN (15:10)
[2019-09-06] MEDS: Ferrous Sulfate 325 MG TAB PO SCH (16:23)
[2019-09-07] MEDS: Ibuprofen 800 MG TAB PO SCH ×3 (06:51→20:35)
[2019-09-07] MEDS: Docusate Calcium (SURFAK) 240 MG CAP PO SCH ×3 (07:12→20:35)
[2019-09-07 07:14] VITALS: TEMP 98.5
[2019-09-07 08:31] VITALS: BP 111/70
[2019-09-07] MEDS: HYDROcodone/Acetaminophen 5/325 mg Tablet PO PRN ×2 (08:49→17:18)
[2019-09-07] MEDS: Ferrous Sulfate 325 MG TAB PO SCH ×2 (08:51→15:07)
[2019-09-07] MEDS ORDERED: Prenatal Vitamin 1 TAB PO SCH (09:00)
== END 2019-09-07 20:44 | disposition home or self-care (01) | DRG 807 ==
LOC: L&D/OP 00:52 → L&D 01:51 → 3SW 10:10
PROVIDERS: ADMIT Family Medicine; ATTEND Family Medicine
PROC: 10E0XZZ Delivery of Products of Conception, External Approach (ICD-10-PCS; principal; 2019-09-06)
DX: O80 Encounter for full-term uncomplicated delivery (principal); Z37.0 Single live birth; Z3A.38 38 weeks gestation of pregnancy
CPT/HCPCS: 36415; 51702; 85027; 86780; 86850; 86900; 86901; 87340; 99285; J2001

== ENCOUNTER 2019-11-17 19:08 | Emergency (ER) | payer MEDICAID, SELFPAY ==
[2019-11-17 19:31] LABS: Bilirubin Negative (Negative); Blood, Urine 2+ (Negative); Clarity Clear (Clear); Glucose, Urine (Dipstick) Normal (Negative); Leukocyte 500 Leu/uL (Negative); Nitrite Negative (Negative); Protein, Urine (Dipstick) 20 mg/dL (Neg-Trace); Squamous Epithelial None Seen HPF (0-3); Urobilinogen Normal mg/dL (Less than 2); WBC/HPF 21-50 HPF (0-3)
[2019-11-17 19:32] LABS: Bacteria/HPF 1+ HPF (None Seen)
[2019-11-17] MEDS ORDERED: Ketorolac Tromethamine 30 MG/ML VIAL ONE (19:56)
[2019-11-17] MEDS ORDERED: Cephalexin 250 MG CAP ONE (19:56)
[2019-11-17 20:10] LABS: Pregnancy Test - Urine (BHCG) Negative (Negative); Pregu Control Background? CLEAR/WHITE (CLR/WHITE); Pregu Control Bar Appear? YES (CONTROL BAR); Specific Gravity 1.002 (1.002-1.036)
[2019-11-23 23:35] LABS: Chlam.trachomatis by PCR,Urine Inconclusive (NotDetected)
== END 2019-11-17 20:52 | disposition home or self-care (01) ==
LOC: ERS 19:08
DX: N10 Acute pyelonephritis (principal)
CPT/HCPCS: 81003; 81015; 81025; 87077; 87086; 87186; 87491; 87591; 96372; 99283; J1885

== ENCOUNTER 2020-10-13 12:33 | Emergency (ER) | payer OTHER, SELFPAY ==
[2020-10-13 14:11] LABS: Bacteria/HPF None Seen HPF (None Seen); Bilirubin Negative (Negative); Blood, Urine Negative (Negative); Clarity Clear (Clear); Glucose, Urine (Dipstick) Normal (Negative); Ketone, Urine Trace mg/dL (Negative); Leukocyte 75 Leu/uL (Negative); Nitrite Negative (Negative); Protein, Urine (Dipstick) 10 mg/dL (Neg-Trace); Specific Gravity, Urine 1.029 (1.002-1.036); Urobilinogen Normal mg/dL (Less than 2); WBC/HPF 0-3 HPF (0-3); pH, Urine 6.5 (5.0-9.0)
[2020-10-13 14:13] LABS: Pregnancy Test - Urine (BHCG) Negative (Negative); Pregu Control Background? CLEAR/WHITE (CLR/WHITE); Pregu Control Bar Appear? YES (CONTROL BAR); Specific Gravity 1.029 (1.002-1.036)
== END 2020-10-13 15:20 | disposition home or self-care (01) ==
LOC: ERS 12:33
DX: S80.02XA Contusion of left knee, initial encounter (principal); M54.5 Low back pain; W01.0XXA Fall on same level from slipping, tripping and stumbling without subsequent striking against object, initial encounter
CPT/HCPCS: 81003; 81015; 81025

== ENCOUNTER 2022-07-23 22:54 | Emergency (ER) | payer SELFPAY ==
[2022-07-24 00:25] LABS: BHCG - Serum Negative (NEGATIVE)
[2022-07-24 00:26] LABS: Pregs Control Background? CLEAR/WHITE (CLR/WHITE); Pregs Control Bar Appear? YES (CONTROL BAR)
== END 2022-07-24 00:53 | disposition home or self-care (01) ==
LOC: ERS 22:54
DX: F41.9 Anxiety disorder, unspecified (principal)
CPT/HCPCS: 36415; 84703; 99284

== ENCOUNTER 2023-02-11 21:54 | Emergency (ER) | payer SELFPAY ==
[2023-02-11 23:33] LABS: #Eosinphils 0.1 thou/uL (0.0-0.7); #Monocytes 0.7 thou/uL (0.11-0.59); #Neutrophils 6.8 thou/uL (1.40-6.50); %Basophils 0.4 % (0.0-1.0); %Eosinophils 0.8 % (0.0-10.0); %Monocytes 6.6 % (0.0-10.0); %Neutrophils 63.9 % (42.0-75.0); Hematocrit 42.1 % (36.0-47.0); Hemoglobin 13.9 g/dL (12.0-16.0); Mean Corpuscular Hemoglobin 28.2 pg (27.0-31.0); Mean Corpuscular Volume 85.4 fl (78.0-98.0); Mean Platelet Volume 10.9 fL (7.4-10.4); Platelet Count 273 10x3/uL (130-400); RBC Distribution Width 13.9 % (11.5-14.5); Red Blood Cell (RBC) Count 4.93 mill/uL (4.20-5.40); White Blood Cell (WBC) Count 10.7 10x3/uL (4.8-10.8)
[2023-02-11 23:52] LABS: BHCG - Serum Negative (NEGATIVE); Pregs Control Background? CLEAR/WHITE (CLR/WHITE); Pregs Control Bar Appear? YES (CONTROL BAR)
[2023-02-12 00:06] LABS: ALT (SGPT) 24 U/L (8-55); AST (SGOT) 16 U/L (5-34); Albumin 4.5 g/dL (3.5-5.0); Alkaline Phosphatase 70 U/L (40-110); Anion Gap 14 mmol/L (10-20); BUN (Urea Nitrogen) 11 mg/dL (7.0-18.7); Bilirubin, Total 0.3 mg/dL (0.2-1.2); Calc. Creatinine Clearance 0 mL/min (70-130); Calcium 9.2 mg/dL (7.8-10.44); Carbon Dioxide 18 mmol/L (22-29); Chloride 110 mmol/L (98-107); Estimated GFR 110; Globulin 2.7 g/dL (2.4-3.5); Glucose 109 mg/dL (70-105); Lipase 22 U/L (8-78); Protein, Total 7.2 g/dL (6.0-8.3); Sodium 138 mmol/L (136-145)
[2023-02-12 00:07] LABS: Troponin I Less than 0.010 ng/mL (< 0.028)
== END 2023-02-12 00:12 | disposition home or self-care (01) ==
LOC: ERS 21:54
DX: R06.00 Dyspnea, unspecified (principal); R42 Dizziness and giddiness
CPT/HCPCS: 36415; 71045; 80053; 83690; 84484; 84703; 85025; 93005

== ENCOUNTER 2025-01-22 06:05 | Emergency (ER) | payer SELFPAY ==
[2025-01-22] MEDS ORDERED: Ondansetron PF 4 MG/2 ML Vial ONE (06:34)
[2025-01-22 06:55] LABS: #Basophils 0.04 10x3/uL (0.0-0.2); #Eosinophils 0.06 10x3/uL (0.0-0.7); #Monocytes 0.59 10x3/uL (0.11-0.59); #Neutrophils 4.28 10x3/uL (1.40-6.50); %Basophils 0.5 % (0.0-1.0); %Eosinophils 0.8 % (0.0-10.0); %Lymphocytes 37.0 % (21.0-51.0); %Monocytes 7.5 % (0.0-10.0); %Neutrophils 54.1 % (42.0-75.0); Hematocrit 38.5 % (36.0-47.0); Hemoglobin 12.8 g/dL (12.0-16.0); Mean Corpuscular Hemoglobin 28.3 pg (27.0-31.0); Mean Corpuscular Volume 85.2 fL (78.0-98.0); Platelet Count 270 10x3/uL (130-400); Red Blood Cell (RBC) Count 4.52 mill/uL (4.20-5.40); White Blood Cell (WBC) Count 7.90 10x3/uL (4.8-10.8)
[2025-01-22 07:08] LABS: ALT (SGPT) 11 U/L (Less than 34); AST (SGOT) 14 U/L (11-34); Albumin 3.9 g/dL (3.1-4.5); Alkaline Phosphatase 51 U/L (40-110); Anion Gap 13 mmol/L (10-20); BUN (Urea Nitrogen) 13 mg/dL (7.0-18.7); Bilirubin, Total 0.4 mg/dL (0.3-1.2); Calc. Creatinine Clearance 0 mL/min (70-130); Calcium 8.4 mg/dL (7.8-10.44); Carbon Dioxide 23 mmol/L (22-29); Chloride 108 mmol/L (98-107); Globulin 2.9 g/dL (2.4-3.5); Glucose 93 mg/dL (70-105); Lipase 24 U/L (8-78); Potassium 3.7 mmol/L (3.5-5.1); Sodium 140 mmol/L (136-145)
[2025-01-22 07:39] LABS: Bacteria/HPF None Seen HPF (None Seen); CAUTI Indications for Culture Pelvic or flank pain; Glucose, Urine (Dipstick) Normal (Negative); Leukocyte 25 Leu/uL (Negative); Protein, Urine (Dipstick) Negative (Neg-Trace); RBC/HPF 0-3 HPF (0-3); Specific Gravity, Urine 1.007 (1.002-1.036); WBC/HPF 0-3 HPF (0-3)
[2025-01-22 07:57] LABS: Urine Culture Reflex No No
== END 2025-01-22 07:58 | disposition home or self-care (01) ==
LOC: ERS 06:05
DX: K52.9 Noninfective gastroenteritis and colitis, unspecified (principal)
CPT/HCPCS: 80053; 81001; 83690; 85025; 96360; J2405